=== PATIENT | female | born 1985 | race African-American/Black ===

== ENCOUNTER 2017-01-14 08:01 | Emergency (ER) | payer MEDICAID ==
[~2017-01-14] VITALS: Ht 157.5 cm; Wt 84.1 kg
[~2017-01-14 08:01] MED LIST: AMOXICILLIN 50500 MG PO; CLINDAMYCIN150 MG PO; LORTAB 5/500 501 TAB PO; MIRENA52 MG IU; NORCO 325 MG-51 TAB PO; NUVARING1 ICR VG; PENICILLIN V500 MG PO; PRENATAL VITAMI1 TA5 PO; PROAIR HFA0.09 MG/AC IH; TESSALON PERLE200 MG PO; TOPIRAMATE; ZITHROMAX Z PA250 MG PO; [UNRECOGNIZED DRUG - REMARK]
[2017-01-14 08:11] VITALS: TEMP 99.4
[2017-01-14 09:27] LABS: BASO % 0.4 % (0.0-2.0); EOS # 0.2 (0.0-0.7); EOS % 1.7 % (0-4.0); GRAN # 6.9 (1.4-6.5); GRAN % 66.3 % (42.2-75.2); HEMATOCRIT 47.2 % (37.0-47.0); HEMOGLOBIN 15.9 g/dl (12.5-16.0); LYMPH # 2.8 (1.2-3.4); LYMPH % 26.9 % (20.0-51.0); MEAN CELL VOLUME 90 fl (80.0-100.0); MEAN CORPUSCULAR HEMOGLOBIN 31 pg (27.0-31.0); MEAN CORPUSCULAR HGB CONC 34 g/dl (33.0-37.0); MEAN PLATELET VOLUME 9.7 fl (7.4-10.4); MONO # 0.5 (0.1-0.6); MONO % 4.4 % (1.7-9.3); PLATELET COUNT 307 K/mm3 (130-400); RED BLOOD COUNT 5.22 M/mm3 (4.10-5.30); REDCELL DISTRIBUTION WIDTH-CV 13.3 % (11.5-14.5); WHITE BLOOD COUNT 10.5 K/mm3 (4.8-10.8)
[2017-01-14 09:37] LABS: ADJUSTED CALCIUM 9.4 mg/dL (8.4-10.2); ALBUMIN 4.4 gm/dL (3.5-5.0); BILIRUBIN,TOTAL 0.9 mg/dL (0.0-1.0); CALCIUM 9.7 mg/dL (8.4-10.2); CREATININE, serum 0.7 mg/dL (0.52-1.25); POTASSIUM 4.1 mmol/L (3.4-5.0); TOTAL PROTEIN 8.2 gm/dL (6.4-8.2)
[2017-01-14 09:40] LABS: PH 5 (5-8); URINE APPEARANCE Clear; URINE BACTERIA Rare /hpf; URINE BILIRUBIN Negative (NEGATIVE); URINE BLOOD Negative (NEGATIVE); URINE COLOR Yellow; URINE GLUCOSE Negative (NEGATIVE); URINE KETONE Negative (NEGATIVE); URINE UROBILINOGEN Negative (NEGATIVE)
[2017-01-14] MEDS ORDERED: MACROBID 1100 MG/CAP PO (09:47)
[2017-01-14 11:02] VITALS: BP 133/86; PULSE 83
== END 2017-01-14 11:13 | disposition home or self-care (01) ==
LOC: COL.ER 08:01
PROVIDERS: Nurse Practitioner
DX: O26.891 Other specified pregnancy related conditions, first trimester (principal); R10.2 Pelvic and perineal pain; N94.89 Other specified conditions associated with female genital organs and menstrual cycle; O23.41 Unspecified infection of urinary tract in pregnancy, first trimester; B96.20 Unspecified Escherichia coli [E. coli] as the cause of diseases classified elsewhere; Z3A.11 11 weeks gestation of pregnancy
CPT/HCPCS: J2765; J7030

== ENCOUNTER 2017-08-02 10:02 | Inpatient (IN) | payer MEDICAID ==
[~2017-08-02] VITALS: Ht 157.5 cm; Wt 110.7 kg
[~2017-08-02 10:02] MED LIST changes: +MACROBID 1100 MG/CAP PO
[2017-08-18] VITALS (31 sets, daily range): BP systolic 124–165; BP diastolic 71–92; PULSE 71–120; TEMP 98–99.3
[2017-08-18] MEDS ORDERED: PRENATAL MVI (16:25)
[2017-08-18 17:06] LABS: BASO % 0.3 % (0.0-2.0); EOS # 0.2 (0.0-0.7); EOS % 1.3 % (0-4.0); GRAN # 7.5 (1.4-6.5); GRAN % 66.1 % (42.2-75.2); HEMATOCRIT 44.5 % (37.0-47.0); HEMOGLOBIN 14.7 g/dl (12.5-16.0); LYMPH # 3.1 (1.2-3.4); LYMPH % 26.8 % (20.0-51.0); MEAN CELL VOLUME 86 fl (80.0-100.0); MEAN CORPUSCULAR HEMOGLOBIN 28 pg (27.0-31.0); MEAN CORPUSCULAR HGB CONC 33 g/dl (33.0-37.0); MEAN PLATELET VOLUME 11.7 fl (7.4-10.4); MONO # 0.6 (0.1-0.6); MONO % 5.1 % (1.7-9.3); PLATELET COUNT 206 K/mm3 (130-400); RED BLOOD COUNT 5.19 M/mm3 (4.10-5.30); WHITE BLOOD COUNT 11.4 K/mm3 (4.8-10.8)
[2017-08-19] VITALS (12 sets, daily range): BP systolic 116–151; BP diastolic 64–89; PULSE 68–101; TEMP 97.6–99.5
[2017-08-19 08:18] LABS: HEMATOCRIT 39.9 % (37.0-47.0); HEMOGLOBIN 13.3 g/dl (12.5-16.0)
[2017-08-20 09:00] VITALS: BP 136/71; PULSE 82; TEMP 98.8
[2017-08-20] MEDS ORDERED: MOTRIN 600600 MG/TAB PO (10:23)
[2017-08-20] MEDS ORDERED: PERCOCET 325 MG1 TA2 PO (10:23)
== END 2017-08-20 12:00 | disposition home or self-care (01) | DRG 775 ==
LOC: OB 08-18 08:34 → LDR 08-18 15:56 → OB 08-19 01:55
PROVIDERS: Obstetrics & Gynecology
PROC: 10E0XZZ Delivery of Products of Conception, External Approach (ICD-10-PCS; principal; 2017-08-18)
PROC: 3E033VJ Introduction of Other Hormone into Peripheral Vein, Percutaneous Approach (ICD-10-PCS; 2017-08-18)
DX: O75.89 Other specified complications of labor and delivery (principal); O70.0 First degree perineal laceration during delivery; Z3A.39 39 weeks gestation of pregnancy; Z37.0 Single live birth
CPT/HCPCS: J2590; J2795; J7120

== ENCOUNTER → 2018-03-15 | Outpatient (CLI) | payer OTHER ==
[~2018-03-15] MED LIST changes: +K-TAB20 PO; +LASIX 40MG TABL40 MG PO; +MIRENA52 MG IY; +MOTRIN 600600 MG/TAB PO; +PERCOCET 325 MG1 TA2 PO; +PRENATAL MVI; +TOPROL XL 25MG25 MG PO; +VASOTEC 5MG5 MG/TAB PO
[2018-03-15 14:53] LABS: CHOLESTEROL RISK RATIO 6.5
[2018-03-15 15:24] LABS: TSH w REFLEX 1.52 uIU/mL (0.465-4.680)
== END ==
LOC: COL.LAB 10:50
PROVIDERS: Family Medicine
DX: Z13.1 Encounter for screening for diabetes mellitus (principal); Z13.220 Encounter for screening for lipoid disorders; R00.0 Tachycardia, unspecified

== ENCOUNTER 2019-01-21 10:15 | Emergency (ER) | payer OTHER ==
[~2019-01-21] VITALS: Ht 157.5 cm; Wt 109.0 kg
[2019-01-21 10:18] VITALS: TEMP 99
[2019-01-21 11:13] LABS: BASO # 0.1 (0.0-0.2); BASO % 0.4 % (0.0-2.0); EOS # 0.2 (0.0-0.7); GRAN # 9.4 (1.4-6.5); HEMOGLOBIN 17.9 g/dl (12.5-16.0); LYMPH # 4.9 (1.2-3.4); LYMPH % 31.7 % (20.0-51.0); MEAN CELL VOLUME 96 fl (80.0-100.0); MEAN CORPUSCULAR HEMOGLOBIN 32 pg (27.0-31.0); MEAN CORPUSCULAR HGB CONC 33 g/dl (33.0-37.0); MEAN PLATELET VOLUME 11.1 fl (7.4-10.4); MONO # 0.8 (0.1-0.6); MONO % 5.5 % (1.7-9.3); PLATELET COUNT 280 K/mm3 (130-400); RED BLOOD COUNT 5.56 M/mm3 (4.10-5.30); REDCELL DISTRIBUTION WIDTH-CV 14.5 % (11.5-14.5)
[2019-01-21 11:14] LABS: HEMATOCRIT 53.6 % (37.0-47.0)
[2019-01-21 11:16] LABS: ALBUMIN 4.2 gm/dL (3.5-5.0); BILIRUBIN,TOTAL 1.6 mg/dL (0.0-1.0); CALCIUM 9.2 mg/dL (8.4-10.2); CREATININE, serum 0.94 (0.52-1.25); POTASSIUM 3.7 mmol/L (3.4-5.0)
[2019-01-21] MEDS ORDERED: VASOTEC 5MG5 MG/TAB PO (11:47)
[2019-01-21] MEDS ORDERED: LASIX 40MG TABL40 MG PO (11:47)
[2019-01-21] MEDS ORDERED: LOPRESSOR 225 MG/TAB PO (11:47)
[2019-01-21] MEDS ORDERED: K-TAB10 PO (11:47)
[2019-01-21 12:07] VITALS: BP 147/109; PULSE 108
== END 2019-01-21 12:09 | disposition home or self-care (01) ==
LOC: COL.ER 10:15
PROVIDERS: Family Medicine
DX: I50.9 Heart failure, unspecified (principal); I51.7 Cardiomegaly; Z91.14 Patient's other noncompliance with medication regimen
CPT/HCPCS: J1940

== ENCOUNTER 2019-08-24 06:33 | Emergency (ER) | payer OTHER ==
[~2019-08-24] VITALS: Ht 157.5 cm; Wt 95.5 kg
[~2019-08-24 06:33] MED LIST changes: +K-TAB10 PO; +LOPRESSOR 225 MG/TAB PO
[2019-08-24 06:39] VITALS: PULSE 106; TEMP 97.6
[2019-08-24 06:57] LABS: COLLECTION METHOD CLEAN CATCH
[2019-08-24 07:12] LABS: MUCOUS Present /lpf; PH 5 (5-8); URINE APPEARANCE Hazy; URINE BACTERIA Rare /hpf; URINE BILIRUBIN Negative (NEGATIVE); URINE BLOOD 1+ (NEGATIVE); URINE COLOR Amber; URINE GLUCOSE Negative (NEGATIVE); URINE KETONE Negative (NEGATIVE); URINE LEUKOCYTE ESTERASE Negative (NEGATIVE); URINE NITRATE Positive (NEGATIVE); URINE PROTEIN(semi-quant) 3+ (NEGATIVE); URINE UROBILINOGEN Negative (NEGATIVE)
[2019-08-24] MEDS ORDERED: OMNICEF 300MG300 MG PO (07:17)
[2019-08-24 07:28] LABS: BASO # 0.1 (0.0-0.2); BASO % 0.4 % (0.0-2.0); EOS % 0.3 % (0-4.0); GRAN # 11.5 (1.4-6.5); GRAN % 78.8 % (42.2-75.2); HEMATOCRIT 53.7 % (37.0-47.0); HEMOGLOBIN 18.1 g/dl (12.5-16.0); LYMPH # 2.3 (1.2-3.4); MEAN CELL VOLUME 97 fl (80.0-100.0); MEAN CORPUSCULAR HEMOGLOBIN 33 pg (27.0-31.0); MEAN CORPUSCULAR HGB CONC 34 g/dl (33.0-37.0); MEAN PLATELET VOLUME 10.9 fl (7.4-10.4); MONO # 0.6 (0.1-0.6); MONO % 4.1 % (1.7-9.3); PLATELET COUNT 289 K/mm3 (130-400); RED BLOOD COUNT 5.53 M/mm3 (4.10-5.30); REDCELL DISTRIBUTION WIDTH-CV 14.1 % (11.5-14.5)
[2019-08-24 07:52] LABS: ALBUMIN 4.6 gm/dL (3.5-5.0); BILIRUBIN,TOTAL 1.8 mg/dL (0.0-1.0); CALCIUM 9.6 mg/dL (8.4-10.2); CREATININE, serum 0.9 (0.52-1.25); POTASSIUM 3.8 mmol/L (3.4-5.0); TOTAL PROTEIN 8.8 gm/dL (6.4-8.2)
[2019-08-24 10:31] LABS: PROTHROMBIN TIME 11.4 SECONDS (9.7-12.8)
[2019-08-24 10:34] LABS: PARTIAL THROMBOPLASTIN TIME 32.5 SECONDS (26.0-37.0)
[2019-08-24 12:41] VITALS: BP 129/96
== END 2019-08-24 12:41 | disposition short-term general hospital (02) ==
LOC: COL.ER 06:33 → SURG 08:01 → COL.ER 08:01
PROVIDERS: Emergency Medicine
DX: N39.0 Urinary tract infection, site not specified (principal); N28.0 Ischemia and infarction of kidney; I50.9 Heart failure, unspecified
CPT/HCPCS: A4216; J0696; J1644; J2270; J7030; Q9967

== ENCOUNTER 2019-10-23 08:52 | Emergency (ER) | payer OTHER ==
[~2019-10-23] VITALS: Ht 157.5 cm; Wt 97.7 kg
[~2019-10-23 08:52] MED LIST changes: +OMNICEF 300MG300 MG PO
[2019-10-23 09:01] VITALS: TEMP 97.8
[2019-10-23 09:47] LABS: COLLECTION METHOD CLEAN CATCH
[2019-10-23 09:56] LABS: BASO # 0.1 (0.0-0.2); BASO % 0.4 % (0.0-2.0); EOS # 0.1 (0.0-0.7); EOS % 0.7 % (0-4.0); GRAN % 69.6 % (42.2-75.2); HEMOGLOBIN 17.6 g/dl (12.5-16.0); LYMPH # 3.4 (1.2-3.4); LYMPH % 23.8 % (20.0-51.0); MEAN CELL VOLUME 99 fl (80.0-100.0); MEAN CORPUSCULAR HEMOGLOBIN 33 pg (27.0-31.0); MEAN CORPUSCULAR HGB CONC 34 g/dl (33.0-37.0); MEAN PLATELET VOLUME 10.9 fl (7.4-10.4); MONO # 0.7 (0.1-0.6); MONO % 5.1 % (1.7-9.3); PLATELET COUNT 259 K/mm3 (130-400); RED BLOOD COUNT 5.33 M/mm3 (4.10-5.30)
[2019-10-23 09:57] LABS: ALBUMIN 4.2 gm/dL (3.5-5.0); BILIRUBIN,TOTAL 3.4 mg/dL (0.0-1.0); CALCIUM 9.2 mg/dL (8.4-10.2); CREATININE, serum 0.89 (0.52-1.25); POTASSIUM 3.7 mmol/L (3.4-5.0); TOTAL PROTEIN 7.8 gm/dL (6.4-8.2)
[2019-10-23 10:00] LABS: HEMATOCRIT 52.5 % (37.0-47.0)
[2019-10-23 10:12] LABS: TROPONIN-I 0.038 ng/mL (0.000-0.035)
[2019-10-23 10:14] LABS: MUCOUS Present /lpf; PH 5 (5-8); URINE APPEARANCE Hazy; URINE BACTERIA Rare /hpf; URINE BILIRUBIN Negative (NEGATIVE); URINE BLOOD 2+ (NEGATIVE); URINE COLOR Amber; URINE GLUCOSE Negative (NEGATIVE); URINE KETONE Trace (NEGATIVE); URINE LEUKOCYTE ESTERASE Trace (NEGATIVE); URINE NITRATE Negative (NEGATIVE); URINE PROTEIN(semi-quant) 2+ (NEGATIVE)
[2019-10-23 12:59] VITALS: BP 138/110; PULSE 105
== END 2019-10-23 13:05 | disposition short-term general hospital (02) ==
LOC: COL.ER 08:52
PROVIDERS: Emergency Medicine
DX: N39.0 Urinary tract infection, site not specified (principal); R07.89 Other chest pain; R10.13 Epigastric pain; R79.89 Other specified abnormal findings of blood chemistry; R06.00 Dyspnea, unspecified
CPT/HCPCS: A4216; J0696; J2270; J7030; Q9967

== ENCOUNTER 2020-01-14 18:57 | Emergency (ER) | payer OTHER ==
[~2020-01-14] VITALS: Ht 157.5 cm; Wt 106.4 kg
[2020-01-14 19:05] VITALS: TEMP 98.4
[2020-01-14] MEDS ORDERED: TOPROL XL 50MG50 MG PO (19:24)
[2020-01-14] MEDS ORDERED: ASPIRIN 81M81 MG/TA2 PO (19:25)
[2020-01-14] MEDS ORDERED: ELIQUIS 5MG PO (19:25)
[2020-01-14] MEDS ORDERED: ENTRESTO 24 MG1 EACH PO (19:26)
[2020-01-14 19:32] LABS: BASO # 0.1 (0.0-0.2); BASO % 0.6 % (0.0-2.0); EOS # 0.2 (0.0-0.7); EOS % 1.8 % (0-4.0); GRAN % 56.3 % (42.2-75.2); HEMATOCRIT 50.4 % (37.0-47.0); HEMOGLOBIN 17.6 g/dl (12.5-16.0); LYMPH # 3.9 (1.2-3.4); LYMPH % 36.3 % (20.0-51.0); MEAN CELL VOLUME 98 fl (80.0-100.0); MEAN CORPUSCULAR HEMOGLOBIN 34 pg (27.0-31.0); MEAN CORPUSCULAR HGB CONC 35 g/dl (33.0-37.0); MEAN PLATELET VOLUME 10.7 fl (7.4-10.4); MONO # 0.5 (0.1-0.6); MONO % 4.8 % (1.7-9.3); PLATELET COUNT 239 K/mm3 (130-400); RED BLOOD COUNT 5.17 M/mm3 (4.10-5.30); REDCELL DISTRIBUTION WIDTH-CV 14.5 % (11.5-14.5)
[2020-01-14 19:37] LABS: INR 1.1 (0.8-3.0); PROTHROMBIN TIME 12.5 SECONDS (9.7-12.8)
[2020-01-14 19:40] LABS: ALBUMIN 4.1 gm/dL (3.5-5.0); BILIRUBIN,TOTAL 1.1 mg/dL (0.0-1.0); CALCIUM 8.8 mg/dL (8.4-10.2); CREATININE, serum 0.81 (0.52-1.25); POTASSIUM 3.2 mmol/L (3.4-5.0); TOTAL PROTEIN 7.4 gm/dL (6.4-8.2)
[2020-01-14 19:51] LABS: TROPONIN-I 0.035 ng/mL (0.000-0.035)
[2020-01-14 22:04] VITALS: BP 129/75; PULSE 100
== END 2020-01-14 22:00 | disposition home or self-care (01) ==
LOC: COL.ER 18:57
PROVIDERS: Family Medicine
DX: I50.9 Heart failure, unspecified (principal); I42.9 Cardiomyopathy, unspecified; E86.9 Volume depletion, unspecified; Z79.01 Long term (current) use of anticoagulants; Z79.82 Long term (current) use of aspirin; Z79.899 Other long term (current) drug therapy
CPT/HCPCS: J7120

== ENCOUNTER → 2020-02-24 | Outpatient (CLI) | payer OTHER ==
[~2020-02-24] MED LIST changes: +ASPIRIN 81M81 MG/TA2 PO; +ELIQUIS 5MG PO; +ENTRESTO 24 MG1 EACH PO; +TOPROL XL 50MG50 MG PO
[2020-02-24 17:46] LABS: TROPONIN-I 0.013 ng/mL (0.000-0.035)
== END ==
LOC: ZCOL.LAB 15:01
PROVIDERS: Family Medicine
DX: I50.22 Chronic systolic (congestive) heart failure (principal); R06.02 Shortness of breath

== ENCOUNTER 2020-03-03 03:27 | Emergency (ER) | payer OTHER ==
[~2020-03-03] VITALS: Ht 157.5 cm; Wt 108.2 kg
[2020-03-03 03:34] VITALS: BP 149/91; TEMP 97.2
[2020-03-03 05:50] VITALS: PULSE 88
== END 2020-03-03 05:50 | disposition home or self-care (01) ==
LOC: COL.ER 03:27
DX: F41.0 Panic disorder [episodic paroxysmal anxiety] (principal); F17.210 Nicotine dependence, cigarettes, uncomplicated; Z79.01 Long term (current) use of anticoagulants; Z79.82 Long term (current) use of aspirin
CPT/HCPCS: J2060

== ENCOUNTER 2021-03-15 02:23 | Inpatient (IN) | payer OTHER ==
[2021-03-15] VITALS (358 sets, daily range): BP systolic 117–160; BP diastolic 78–112; PULSE 70–95; TEMP 98–98.6; O2SAT 89–98
[~2021-03-15] VITALS: Ht 157.5 cm; Wt 102.7 kg
[2021-03-15 02:44] LABS: BASO # 0.1 (0.0-0.2); BASO % 0.4 % (0.0-2.0); EOS # 0.2 (0.0-0.7); EOS % 1.6 % (0-4.0); GRAN # 7.9 (1.4-6.5); GRAN % 67.2 % (42.2-75.2); HEMATOCRIT 48.8 % (37.0-47.0); HEMOGLOBIN 16.6 g/dl (12.5-16.0); LYMPH # 2.9 (1.2-3.4); LYMPH % 24.7 % (20.0-51.0); MEAN CELL VOLUME 102 fl (80.0-100.0); MEAN CORPUSCULAR HEMOGLOBIN 35 pg (27.0-31.0); MEAN CORPUSCULAR HGB CONC 34 g/dl (33.0-37.0); MEAN PLATELET VOLUME 10.4 fl (7.4-10.4); MONO # 0.7 (0.1-0.6); MONO % 5.7 % (1.7-9.3); PLATELET COUNT 204 K/mm3 (130-400); REDCELL DISTRIBUTION WIDTH-CV 14.6 % (11.5-14.5)
[2021-03-15 02:48] LABS: INR 1.2 (0.8-3.0); PROTHROMBIN TIME 13.2 SECONDS (9.7-12.8)
[2021-03-15 02:52] LABS: ALBUMIN 4.1 gm/dL (3.5-5.0); BILIRUBIN,TOTAL 0.8 mg/dL (0.0-1.0); CALCIUM 9.3 mg/dL (8.4-10.2); CREATININE, serum 0.76 (0.52-1.25); POTASSIUM 3.6 mmol/L (3.4-5.0); TOTAL PROTEIN 7.9 gm/dL (6.4-8.2)
[2021-03-15 03:03] LABS: TROPONIN-I 0.012 ng/mL (0.000-0.035)
[2021-03-15 05:11] LABS: COLLECTION METHOD CLEAN CATCH
[2021-03-15 05:15] LABS: MUCOUS Present /lpf; PH 5 (5-8); SQUAMOUS EPITHELIAL 0-2 /hpf; URINE APPEARANCE Clear; URINE BACTERIA Rare /hpf; URINE BILIRUBIN Negative (NEGATIVE); URINE BLOOD 2+ (NEGATIVE); URINE COLOR Yellow; URINE GLUCOSE Negative (NEGATIVE); URINE KETONE Negative (NEGATIVE); URINE LEUKOCYTE ESTERASE Negative (NEGATIVE); URINE NITRATE Negative (NEGATIVE); URINE PROTEIN(semi-quant) Negative (NEGATIVE); URINE RBC 0-2 /hpf
[2021-03-15] MEDS ORDERED: ENTRESTO 49 MG1 EACH PO (06:01)
[2021-03-15 07:31] LABS: TROPONIN-I < 0.012 ng/mL (0.000-0.035)
--- NOTE | 2021-03-15 08:10 | NUR ---
PATIENT BROUGHT DOWN FROM ER VIA CART. AMBULATED TO BED WITHOUT DIFFICULTY. PATIENT IS ALERT AND ORIENTED, MEDICATIONS, ALLERGIES, AND HISTORY REVIEWED. VITAL SIGNS STABLE. PATIENT REMAINS ON A NITRO DRIP GOING AT 5MCG/MIN TO LEFT AC. PATIENT DENIES PAIN NAUSEA OR SOB AT THIS TIME. CALL FONTANA WITHIN REACH, ALL SAFETY MAINTAINED. WILL MONITOR.
[2021-03-15 08:15] LABS: C-REACTIVE PROTEIN 2.2 mg/dL (0.0-0.9); MAGNESIUM 1.6 mg/dL (1.6-2.3); PHOSPHOROUS 4.4 mg/dL (2.5-4.5)
--- NOTE | 2021-03-15 10:03 | NUR ---
SW's met with the patient to discuss discharge plan. The patient lives in [place] with her four children. They are 16, twins that are 13, and a 3-year-old. She states that they are staying with family while she is here. She reports independence with ADLs and does not have any DME. The patient reports no difficulties affording her meds now, since she has reached her deductible. She receives her medications from [facility]. The patient does not have a DPOA-HC, but she was interested in obtaining a form. [facility] provided. The patient is not , her children are under the age of 18. Her parents are her next of kin: Ibeth (ph#[phone]) and Reagan. She states that they live three blocks away from her. The patient plans to return home with her children upon discharge. No additional needs at this time. *Discharge plan: home with children*
--- NOTE | 2021-03-15 10:32 | NUR ---
First visit from the cut out and marking machine operator. No needs right now.
--- NOTE | 2021-03-15 10:39 | NUR ---
[facility] MADE AWARE OF EARLIER DOSE OF ASPRIN AND ELIQUIS. PER [facility]SA AND GIVE PLAVIX. MADE PHARMACY AWARE.
--- NOTE | 2021-03-15 16:18 | NUR ---
SEE MERGE FOR ALL MEDICATION ADMINISTRATION TIMES, INTRA AND POST SEDATION ASSESSMENTS
--- NOTE | 2021-03-15 16:40 | NUR ---
PATIENT BROUGHT BACK FROM CARDIAC CATH VIA BED. PLACED ON MONITORS, VITAL SIGNS STABLE. PATIENT IS ALERT AND ORIENTED IN BED, DENIES DISCOMFORT. IV INFUSING WITHOUT DIFFICULTY. RIGHT RADIAL SITE CLEAN DRY INTACT. WILL CONTINUE TO MONITOR.
[2021-03-16] VITALS (268 sets, daily range): BP systolic 137–152; BP diastolic 80–96; PULSE 60–88; TEMP 98.1–98.5; O2SAT 86–99
[2021-03-16 05:34] LABS: BASO # 0.1 (0.0-0.2); BASO % 0.5 % (0.0-2.0); EOS # 0.2 (0.0-0.7); EOS % 1.9 % (0-4.0); GRAN # 7.5 (1.4-6.5); GRAN % 65.4 % (42.2-75.2); HEMATOCRIT 49.5 % (37.0-47.0); HEMOGLOBIN 16.7 g/dl (12.5-16.0); LYMPH % 25.9 % (20.0-51.0); MEAN CELL VOLUME 100 fl (80.0-100.0); MEAN CORPUSCULAR HEMOGLOBIN 34 pg (27.0-31.0); MEAN CORPUSCULAR HGB CONC 34 g/dl (33.0-37.0); MEAN PLATELET VOLUME 10.9 fl (7.4-10.4); MONO # 0.7 (0.1-0.6); PLATELET COUNT 196 K/mm3 (130-400); RED BLOOD COUNT 4.95 M/mm3 (4.10-5.30); REDCELL DISTRIBUTION WIDTH-CV 14.5 % (11.5-14.5)
[2021-03-16 05:48] LABS: CALCIUM 8.4 mg/dL (8.4-10.2); CREATININE, serum 0.64 (0.52-1.25); POTASSIUM 3.3 mmol/L (3.4-5.0)
[2021-03-16 05:51] LABS: CHOLESTEROL RISK RATIO 11.1
--- NOTE | 2021-03-16 07:00 | NUR ---
RECEIVED REPORT FROM ZANDRA VAZQUEZ. PT SITTING UP IN BED PLAYIGN ON HER PHONE ON RA. CALL LIGHT WITHIN REACH. VSS. DENIES ANY CP/PRESSURE AT THIS TIME.
--- NOTE | 2021-03-16 07:05 | NUR ---
Bedside shift report given to ZANDRA Rojas.
[2021-03-16] MEDS ORDERED: ENTRESTO 49 MG1 EACH PO (08:34)
[2021-03-16] MEDS ORDERED: LASIX 20MG TABL20 MG PO (08:35)
== END 2021-03-16 09:30 | disposition home or self-care (01) | DRG 287 ==
LOC: COL.ER 02:23 → ICU 05:10
PROVIDERS: Emergency Medicine; Nurse Practitioner Family; ADMIT Hospitalist
PROC: 4A023N7 Measurement of Cardiac Sampling and Pressure, Left Heart, Percutaneous Approach (ICD-10-PCS; principal; 2021-03-15)
PROC: B2111ZZ Fluoroscopy of Multiple Coronary Arteries using Low Osmolar Contrast (ICD-10-PCS; 2021-03-15)
DX: I11.0 Hypertensive heart disease with heart failure (principal); E87.2 Acidosis; Z68.41 Body mass index [BMI] 40.0-44.9, adult; R07.89 Other chest pain; F17.210 Nicotine dependence, cigarettes, uncomplicated; E66.01 Morbid (severe) obesity due to excess calories; I50.23 Acute on chronic systolic (congestive) heart failure; R74.01 Elevation of levels of liver transaminase levels; E11.65 Type 2 diabetes mellitus with hyperglycemia; D72.829 Elevated white blood cell count, unspecified; D75.1 Secondary polycythemia; I42.9 Cardiomyopathy, unspecified; Z95.0 Presence of cardiac pacemaker
CPT/HCPCS: 99223-AI; 99239; C1769; J1644; J1940; J2250; J3010; Q9967

== ENCOUNTER 2021-10-01 05:21 | Emergency (ER) | payer SELFPAY ==
[~2021-10-01] VITALS: Ht 157.5 cm; Wt 102.3 kg
[~2021-10-01 05:21] MED LIST changes: +ENTRESTO 49 MG1 EACH PO; +LASIX 20MG TABL20 MG PO
[2021-10-01 05:26] VITALS: TEMP 98.3
[2021-10-01 05:45] LABS: BASO # 0.1 K/mm3 (0.0-0.2); BASO % 0.7 % (0.0-2.0); EOS # 0.2 K/mm3 (0.0-0.7); EOS % 1.6 % (0.0-4.0); GRAN % 60.1 % (42.2-75.2); HEMATOCRIT 48.1 % (37.0-47.0); HEMOGLOBIN 16.8 g/dl (12.5-16.0); LYMPH # 3.7 K/mm3 (1.2-3.4); LYMPH % 31.7 % (20.0-51.0); MEAN CELL VOLUME 97 fl (80.0-100.0); MEAN CORPUSCULAR HEMOGLOBIN 34 pg (27-31); MEAN CORPUSCULAR HGB CONC 35 g/dl (33.0-37.0); MEAN PLATELET VOLUME 11.3 fl (7.4-10.4); MONO # 0.7 K/mm3 (0.1-0.6); MONO % 5.6 % (1.7-9.3); PLATELET COUNT 209 K/mm3 (130-400); RED BLOOD COUNT 4.97 M/mm3 (4.10-5.30); REDCELL DISTRIBUTION WIDTH-CV 14.6 % (11.5-14.5)
[2021-10-01 06:10] LABS: ALBUMIN 3.4 gm/dL (3.5-5.0); BILIRUBIN,TOTAL 1.9 mg/dL (0.2-1.2); C-REACTIVE PROTEIN 0.85 mg/dL (0.00-0.50); CALCIUM 8.6 mg/dL (8.4-10.2); CREATININE, serum 0.97 mg/dL (0.57-1.11); INR 1.2 (0.8-3.0); MAGNESIUM 1.4 mg/dL (1.6-2.6); POTASSIUM 3.1 mmol/L (3.5-4.5); PROTHROMBIN TIME 13.3 SECONDS (9.7-12.8); TOTAL PROTEIN 7.4 gm/dL (6.2-8.1)
[2021-10-01 06:17] LABS: TROPONIN-I 0.152 ng/mL (0.00-0.033)
[2021-10-01 12:42] VITALS: BP 142/91; PULSE 112
--- NOTE | 2021-10-04 14:50 | NUR ---
building construction ironworker left Dr Merrill's office a message to call and also left patient a message to call to follow up on patient's ability to obtain her prescriptions.
--- NOTE | 2021-10-05 15:49 | NUR ---
garbage depot worker confirmed with financial counselor that they have reached out and left messages to make contact as patient's medicaid insurance has lapsed. Financial counselor can assist with applying for medicaid.
--- NOTE | 2021-10-14 09:20 | NUR ---
Patient is a client of the [facility]. It was discussed that patient needs to reapply for medicaid/disability as it has lapsed. Securing medicaid will ensure coverage for patient's medications.
== END 2021-10-01 12:42 | disposition left against medical advice (07) ==
LOC: COL.ER 05:21
PROVIDERS: Emergency Medicine
DX: I11.0 Hypertensive heart disease with heart failure (principal); I50.20 Unspecified systolic (congestive) heart failure; R79.89 Other specified abnormal findings of blood chemistry; E87.6 Hypokalemia; F17.210 Nicotine dependence, cigarettes, uncomplicated; Z20.822 Contact with and (suspected) exposure to COVID-19; Z79.899 Other long term (current) drug therapy; Z79.01 Long term (current) use of anticoagulants; Z79.82 Long term (current) use of aspirin
CPT/HCPCS: J1940; J3475

== ENCOUNTER 2021-11-18 21:51 | Inpatient (IN) | payer SELFPAY ==
[~2021-11-18] VITALS: Ht 157.5 cm; Wt 99.8 kg
[2021-11-18 22:17] LABS: COLLECTION METHOD CLEAN CATCH
[2021-11-18 22:22] LABS: BASO # 0.1 K/mm3 (0.0-0.2); BASO % 0.4 % (0.0-2.0); EOS # 0.2 K/mm3 (0.0-0.7); EOS % 1.2 % (0.0-4.0); GRAN # 9.2 K/mm3 (1.4-6.5); GRAN % 70.7 % (42.2-75.2); HEMATOCRIT 49.8 % (37.0-47.0); LYMPH # 2.9 K/mm3 (1.2-3.4); LYMPH % 22.6 % (20.0-51.0); MEAN CELL VOLUME 99 fl (80.0-100.0); MEAN CORPUSCULAR HEMOGLOBIN 34 pg (27-31); MEAN CORPUSCULAR HGB CONC 34 g/dl (33.0-37.0); MONO # 0.6 K/mm3 (0.1-0.6); MONO % 4.8 % (1.7-9.3); PLATELET COUNT 187 K/mm3 (130-400); RED BLOOD COUNT 5.01 M/mm3 (4.10-5.30); REDCELL DISTRIBUTION WIDTH-CV 14.4 % (11.5-14.5)
[2021-11-18 22:32] LABS: MUCOUS Present (NOT PRESENT); PH 7 (5-8); SQUAMOUS EPITHELIAL 0-2 /hpf (0-10); URINE APPEARANCE Clear (CLEAR/HAZY); URINE BACTERIA None Seen /hpf (NONE SEEN); URINE COLOR Yellow (YELLOW)
[2021-11-18 22:33] LABS: URINE BILIRUBIN Negative (NEGATIVE); URINE BLOOD 2+ (NEGATIVE); URINE GLUCOSE Negative (NEGATIVE); URINE KETONE Negative (NEGATIVE); URINE LEUKOCYTE ESTERASE Negative (NEGATIVE); URINE NITRATE Negative (NEGATIVE); URINE PROTEIN(semi-quant) 1+ (NEGATIVE); URINE UROBILINOGEN Negative (NEGATIVE)
[2021-11-18 22:41] LABS: ALBUMIN 3.7 gm/dL (3.5-5.0); BILIRUBIN,TOTAL 2.3 mg/dL (0.2-1.2); C-REACTIVE PROTEIN 0.85 mg/dL (0.00-0.50); CALCIUM 9.2 mg/dL (8.4-10.2); CREATININE, serum 0.82 mg/dL (0.57-1.11); POTASSIUM 3.4 mmol/L (3.5-4.5); TOTAL PROTEIN 7.4 gm/dL (6.2-8.1)
[2021-11-19] VITALS (9 sets, daily range): BP systolic 156; BP diastolic 92; PULSE 130; TEMP 97.6; O2SAT 38–99
[2021-11-19 00:32] LABS: INR 1.2 (0.8-3.0); PROTHROMBIN TIME 13.2 SECONDS (9.7-12.8)
[2021-11-19] MEDS ORDERED: LASIX 40MG TABL40 MG PO (00:35)
[2021-11-19] MEDS ORDERED: ASPIRIN 81M81 MG/TA2 PO (00:36)
[2021-11-19] MEDS ORDERED: MICRO-K 10 EXT10 MEQ PO (00:36)
[2021-11-19 00:41] LABS: MAGNESIUM 1.5 mg/dL (1.6-2.6)
[2021-11-19 00:49] LABS: TROPONIN-I 0.106 ng/mL (0.00-0.033)
[2021-11-19 01:02] LABS: HEMOGLOBIN A1C 5.8 %
[2021-11-19 01:20] LABS: LACTIC ACID 2.2 mmol/L (0.5-2.0)
--- NOTE | 2021-11-19 17:35 | NUR ---
PT ADMITTED FROM ED WITH CHF. PT IS AXOX4. PT IS ON 2L NC. PT SHOWING ST ON TELE. BENSON MOLINA WITH BEDSIDE. PT ORIENTED TO ROOM AND FLOOR. SHANTA MADRID TO [facility].
[2021-11-20] VITALS (110 sets, daily range): BP systolic 99–140; BP diastolic 61–93; PULSE 94–105; TEMP 97.4–98.5; O2SAT 31–100
[2021-11-20 06:25] LABS: BASO % 0.3 % (0.0-2.0); EOS # 0.1 K/mm3 (0.0-0.7); EOS % 0.9 % (0.0-4.0); GRAN # 5.2 K/mm3 (1.4-6.5); GRAN % 59.6 % (42.2-75.2); HEMOGLOBIN 15.7 g/dl (12.5-16.0); LYMPH # 2.8 K/mm3 (1.2-3.4); MEAN CELL VOLUME 98 fl (80.0-100.0); MEAN CORPUSCULAR HEMOGLOBIN 34 pg (27-31); MEAN CORPUSCULAR HGB CONC 35 g/dl (33.0-37.0); MONO # 0.6 K/mm3 (0.1-0.6); PLATELET COUNT 142 K/mm3 (130-400); RED BLOOD COUNT 4.61 M/mm3 (4.10-5.30); REDCELL DISTRIBUTION WIDTH-CV 14.4 % (11.5-14.5)
[2021-11-20 06:45] LABS: CALCIUM 8.2 mg/dL (8.4-10.2); CREATININE, serum 0.81 mg/dL (0.57-1.11); MAGNESIUM 1.8 mg/dL (1.6-2.6)
[2021-11-20 07:10] LABS: POTASSIUM 2.9 mmol/L (3.5-4.5)
--- NOTE | 2021-11-20 07:40 | NUR ---
Alert and oriented in bed; reports a headache due to the nitro but denies any other concerns or complaints. Will continue to monitor.
--- NOTE | 2021-11-20 12:19 | NUR ---
Commissions Coordinator offered prayer and support with patient.
--- NOTE | 2021-11-20 14:21 | NUR ---
[facility] completed intake with patient. Patient provides that she lives in [facility] with her four children. Patient appointed mother Ibeth Mackay at [phone] as her DPOA-HC during intake. Documentation reviewed completed and placed in chart. Copies also provided to patient for her records. Patient states that she does not utilize DME, and is independent with ADL's. Patient state her PCP is Dr. Tere Pastrana, pharmacy is [facility]. Patient plans to return to her home upon DC and has no concerns with doing so. [facility] will continue to follow. DC plan: home
--- NOTE | 2021-11-20 15:26 | NUR ---
Notified Dr. Posey that Dobutamine and Nitro have been titrated off. Will continue to lasix drip. States that she would be ok with patient going up to the medical floor. Discussed with patient and patient not saying that she is considering going home AMA due to cost and child care sitter issues. Dr. Baker notified and will come talk to the patient and get in touch with social work.
--- NOTE | 2021-11-20 15:31 | NUR ---
SW informed that patient would be leaving AMA due to not having insurance, but needs to stay in facility due to clinical need SW spoke to patient in regards to obtaining resources to review finances. Patient stated that she understands that she is leaving on her on free will and states that she is ready to leave and that everyting will be okay. SW informed patient's physican and physican stated that she will speak with patient.
[2021-11-20] MEDS ORDERED: LANOXIN 0.25M0.25 MG PO (16:09)
[2021-11-20] MEDS ORDERED: COZAAR 25MG25 MG/TAB PO (16:09)
--- NOTE | 2021-11-20 18:20 | NUR ---
Patient discharged from unit; alert and oriented and in no distress upon discharge.
== END 2021-11-20 18:20 | disposition home or self-care (01) | DRG 291 ==
LOC: COL.ER 21:51 → MEDICAL 11-19 14:37 → ICU 11-19 17:18
PROVIDERS: Nurse Practitioner Family; Nurse Practitioner Primary Care; ADMIT Internal Medicine
DX: I11.0 Hypertensive heart disease with heart failure (principal); J96.01 Acute respiratory failure with hypoxia; I50.43 Acute on chronic combined systolic (congestive) and diastolic (congestive) heart failure; E87.2 Acidosis; Z68.41 Body mass index [BMI] 40.0-44.9, adult; I42.0 Dilated cardiomyopathy; F17.210 Nicotine dependence, cigarettes, uncomplicated; D75.1 Secondary polycythemia; E66.01 Morbid (severe) obesity due to excess calories; K81.9 Cholecystitis, unspecified; E87.6 Hypokalemia; R73.9 Hyperglycemia, unspecified; E83.42 Hypomagnesemia; I34.0 Nonrheumatic mitral (valve) insufficiency; T50.2X5A Adverse effect of carbonic-anhydrase inhibitors, benzothiadiazides and other diuretics, initial encounter; I25.2 Old myocardial infarction; Z95.0 Presence of cardiac pacemaker; Z95.810 Presence of automatic (implantable) cardiac defibrillator; Z79.82 Long term (current) use of aspirin; Z23 Encounter for immunization
CPT/HCPCS: 99222-AI; 99232-AI; 99233-AI; 99239; J0696; J1170; J1250; J1885; J1940; J2405; J2543; J3475; J3480; J7030; Q9967

== ENCOUNTER 2022-08-10 16:09 | Emergency (ER) | payer OTHER ==
[~2022-08-10] VITALS: Ht 157.5 cm; Wt 106.8 kg
[~2022-08-10 16:09] MED LIST changes: +COZAAR 25MG25 MG/TAB PO; +LANOXIN 0.25M0.25 MG PO; +MICRO-K 10 EXT10 MEQ PO
[2022-08-10 16:28] VITALS: TEMP 98.1
[2022-08-10 17:15] LABS: COLLECTION METHOD CLEAN CATCH
[2022-08-10 17:16] LABS: HEMATOCRIT 46.6 % (37.0-47.0); HEMOGLOBIN 16.6 g/dl (12.5-16.0); MEAN CELL VOLUME 101 fl (80.0-100.0); MEAN CORPUSCULAR HEMOGLOBIN 36 pg (27-31); MEAN CORPUSCULAR HGB CONC 36 g/dl (33.0-37.0); MEAN PLATELET VOLUME 11.1 fl (7.4-10.4); PLATELET COUNT 153 K/mm3 (130-400); REDCELL DISTRIBUTION WIDTH-CV 14.6 % (11.5-14.5)
[2022-08-10 17:24] LABS: PH 5.5 (5.0-8.5); URINE APPEARANCE Clear (CLEAR/HAZY); URINE BLOOD 2+ (NEGATIVE); URINE COLOR Yellow (YELLOW); URINE GLUCOSE Negative (NEGATIVE); URINE KETONE Negative (NEGATIVE); URINE NITRATE Negative (NEGATIVE); URINE PROTEIN(semi-quant) 2+ (NEGATIVE)
[2022-08-10 17:35] LABS: ALBUMIN 3.5 gm/dL (3.5-5.0); BILIRUBIN,TOTAL 1.4 mg/dL (0.2-1.2); CALCIUM 8.3 mg/dL (8.4-10.2); CREATININE, serum 0.68 mg/dL (0.57-1.11); POTASSIUM 3.5 mmol/L (3.5-4.5)
[2022-08-10 17:36] LABS: MUCOUS Present (NOT PRESENT); URINE BACTERIA None Seen /hpf (NONE SEEN); URINE RBC 0-2 /hpf (0-2)
[2022-08-10 17:47] LABS: BAND 2 % (0-10); LYMPHOCYTE 39 % (20.0-51.0); NEUTROPHILS 57 % (42.0-75.2)
[2022-08-10 17:48] LABS: PLATELET ESTIMATE NORMAL (NORMAL)
[2022-08-10 18:26] VITALS: BP 132/91; PULSE 100
== END 2022-08-10 18:30 | disposition home or self-care (01) ==
LOC: COL.ER 16:09
PROVIDERS: Physician Assistant
DX: K82.8 Other specified diseases of gallbladder (principal); D72.829 Elevated white blood cell count, unspecified; R74.8 Abnormal levels of other serum enzymes; Z88.6 Allergy status to analgesic agent; Z28.310 Unvaccinated for COVID-19
CPT/HCPCS: J1885; J7030

== ENCOUNTER 2022-11-01 08:31 | Inpatient (IN) | payer OTHER ==
[~2022-11-01] VITALS: Ht 5.1 cm; Wt 89.6 kg
[2022-11-01 09:12] LABS: BASO # 0.1 K/mm3 (0.0-0.2); BASO % 0.5 % (0.0-2.0); EOS # 0.2 K/mm3 (0.0-0.7); EOS % 1.3 % (0.0-4.0); GRAN # 7.9 K/mm3 (1.4-6.5); GRAN % 69.3 % (42.2-75.2); HEMATOCRIT 49.1 % (37.0-47.0); HEMOGLOBIN 16.8 g/dl (12.5-16.0); LYMPH # 2.8 K/mm3 (1.2-3.4); LYMPH % 24.2 % (20.0-51.0); MEAN CELL VOLUME 102 fl (80.0-100.0); MEAN CORPUSCULAR HEMOGLOBIN 35 pg (27-31); MEAN CORPUSCULAR HGB CONC 34 g/dl (33.0-37.0); MEAN PLATELET VOLUME 11.6 fl (7.4-10.4); MONO # 0.5 K/mm3 (0.1-0.6); MONO % 4.5 % (1.7-9.3); PLATELET COUNT 165 K/mm3 (130-400); RED BLOOD COUNT 4.82 M/mm3 (4.10-5.30); REDCELL DISTRIBUTION WIDTH-CV 12.8 % (11.5-14.5)
[2022-11-01 09:25] LABS: ALBUMIN 3.6 gm/dL (3.5-5.0); BILIRUBIN,TOTAL 1.7 mg/dL (0.2-1.2); CALCIUM 9.4 mg/dL (8.4-10.2); CREATININE, serum 0.78 mg/dL (0.57-1.11); POTASSIUM 3.7 mmol/L (3.5-4.5); TOTAL PROTEIN 7.9 gm/dL (6.2-8.1)
[2022-11-01 09:34] LABS: TROPONIN-I 0.036 ng/mL (0.00-0.033)
[2022-11-01 12:00] VITALS: BP 154/82; PULSE 59; TEMP 97.9
[2022-11-01 12:03] LABS: COLLECTION METHOD CLEAN CATCH
[2022-11-01 12:20] LABS: PH 5.5 (5.0-8.5); URINE APPEARANCE Turbid (CLEAR/HAZY); URINE COLOR Yellow (YELLOW); URINE GLUCOSE Negative (NEGATIVE); URINE KETONE TRACE (NEGATIVE); URINE PROTEIN(semi-quant) 3+ (NEGATIVE)
[2022-11-01 12:21] LABS: URINE BLOOD Negative (NEGATIVE); URINE NITRATE Positive (NEGATIVE); URINE UROBILINOGEN 0.2 E.U/dL (0.2-1.0)
[2022-11-01 12:24] LABS: MUCOUS Present (NOT PRESENT); SQUAMOUS EPITHELIAL 0-2 /hpf (0-10); URINE BACTERIA None Seen /hpf (NONE SEEN)
[2022-11-01 15:55] VITALS: BP 161/97; PULSE 62; TEMP 98.2
[2022-11-01 19:38] VITALS: BP 129/86; BP 154/77; PULSE 60; PULSE 75; TEMP 98.3; TEMP 98.4
[2022-11-01 23:12] VITALS: BP 156/73; PULSE 50; TEMP 98.3
--- NOTE | 2022-11-02 01:14 | NUR ---
Shift assessment completed around 194; A&O x4. Abdominal pain is scored at 4-5/10, but refusing any pain interventions at this time. Pt verbalizes understanding respect when to call for her pain medications. Pt is NPO. RAC INT is CDI. SCDs on BLE. Belongings and call light are within reach.
[2022-11-02 03:36] VITALS: BP 149/86; PULSE 67; TEMP 98.6
[2022-11-02 07:02] VITALS: BP 152/92; PULSE 61; TEMP 97.9
[2022-11-02 07:18] LABS: BASO # 0.1 K/mm3 (0.0-0.2); BASO % 0.5 % (0.0-2.0); EOS # 0.2 K/mm3 (0.0-0.7); EOS % 2.1 % (0.0-4.0); GRAN # 6.9 K/mm3 (1.4-6.5); HEMATOCRIT 47.6 % (37.0-47.0); LYMPH # 3.8 K/mm3 (1.2-3.4); LYMPH % 32.8 % (20.0-51.0); MEAN CELL VOLUME 104 fl (80.0-100.0); MEAN CORPUSCULAR HEMOGLOBIN 35 pg (27-31); MEAN CORPUSCULAR HGB CONC 34 g/dl (33.0-37.0); MEAN PLATELET VOLUME 11.9 fl (7.4-10.4); MONO # 0.6 K/mm3 (0.1-0.6); MONO % 5.3 % (1.7-9.3); PLATELET COUNT 154 K/mm3 (130-400); RED BLOOD COUNT 4.57 M/mm3 (4.10-5.30); REDCELL DISTRIBUTION WIDTH-CV 12.8 % (11.5-14.5)
[2022-11-02 07:27] LABS: CALCIUM 8.6 mg/dL (8.4-10.2); CREATININE, serum 0.74 mg/dL (0.57-1.11); POTASSIUM 3.9 mmol/L (3.5-4.5)
--- NOTE | 2022-11-02 10:42 | NUR ---
PT TAKEN TO MRI VIA W/C. IV FLUIDS HELD AND TELEMETRY REMOVED FOR EXAM. RESP EVEN AND EASY, PAIN CONTINUES TO HAVE ABD PAIN THAT IS RELIEVED WITH MORPHINE.
[2022-11-02 11:49] VITALS: BP 162/95; PULSE 51; TEMP 98.1
--- NOTE | 2022-11-02 12:09 | NUR ---
DR. BOYLE INFORMED OF MRI RESULTS. THINKING ABOUT DOING MRCP TOMORROW.
--- NOTE | 2022-11-02 14:37 | NUR ---
PT COMPLETED MRI AND IS SCHEDULED FOR EGD IN AM PER DR. BOYLE, PATIENT INFORMED OF PLAN AND GIVEN A CLEAR LIQUID DIET. PT ALSO EDUCATED ON NEED TO NOT TAKE ANYTHING BY MOUTH AFTER MIDNIGHT FOR EGD IN MORNING. PT VERBALIZED UNDERSTANDING.
[2022-11-02 15:29] VITALS: BP 163/76; PULSE 67; TEMP 98.6
[2022-11-02 20:32] VITALS: BP 138/72; PULSE 78; TEMP 98.9
--- NOTE | 2022-11-02 23:03 | NUR ---
Scheduled medications given. Shift assessments performed. VSS. Patient A&O. Patient c/o of 6/10 RUQ pain. PRN morphine given as ordered. Patient is currenlty resting in bed. Denies any further pain, discomfort, SOA, or further needs at this time. Call light in reach.
[2022-11-03] VITALS (9 sets, daily range): BP systolic 114–159; BP diastolic 68–105; PULSE 70–90; TEMP 97.9–98.8
--- NOTE | 2022-11-03 05:15 | NUR ---
Patient has had an uneventful night. PRN morphine given twice this shift for RUQ pain. Patient is currently resting in bed. No s/s of pain or discomfort at this time. Call light in reach.
[2022-11-03 06:39] LABS: BASO # 0.1 K/mm3 (0.0-0.2); BASO % 0.5 % (0.0-2.0); EOS # 0.3 K/mm3 (0.0-0.7); EOS % 2.3 % (0.0-4.0); GRAN # 6.7 K/mm3 (1.4-6.5); GRAN % 60.2 % (42.2-75.2); HEMATOCRIT 45.9 % (37.0-47.0); HEMOGLOBIN 16.2 g/dl (12.5-16.0); LYMPH # 3.4 K/mm3 (1.2-3.4); LYMPH % 30.5 % (20.0-51.0); MEAN CELL VOLUME 100 fl (80.0-100.0); MEAN CORPUSCULAR HEMOGLOBIN 35 pg (27-31); MEAN CORPUSCULAR HGB CONC 35 g/dl (33.0-37.0); MEAN PLATELET VOLUME 11.7 fl (7.4-10.4); MONO # 0.7 K/mm3 (0.1-0.6); MONO % 6.3 % (1.7-9.3); PLATELET COUNT 147 K/mm3 (130-400); RED BLOOD COUNT 4.58 M/mm3 (4.10-5.30); REDCELL DISTRIBUTION WIDTH-CV 12.5 % (11.5-14.5)
[2022-11-03 06:54] LABS: CALCIUM 8.7 mg/dL (8.4-10.2); CREATININE, serum 0.75 mg/dL (0.57-1.11); MAGNESIUM 1.7 mg/dL (1.6-2.6); POTASSIUM 3.8 mmol/L (3.5-4.5)
--- NOTE | 2022-11-03 09:20 | NUR ---
Several visit attempts; Patient out Cloth Desizing Range Tender left card offering spiritual care and God's blessings.
--- NOTE | 2022-11-03 13:10 | NUR ---
[employer] met with patient to discuss discharge planning. Patient lives in [place] with her four children, ages 18, 15, 15, and 5[address] Lee for primary care and obtains medications from [facility] with no difficulties. Patient works from home for [employer] and is independent with ADLS. Patient does not have DPOA-HC and is not interested in completing one at this time. Patient lists her mother, Ibeth (ph#[phone]) as emergency contact. Patient plans to return home at time of discharge, she is hopeful for today. Discharge Plan: Home
[2022-11-03] MEDS ORDERED: PROTONIX 40MG T40 MG PO (14:15)
== END 2022-11-03 14:58 | disposition home or self-care (01) | DRG 439 ==
LOC: COL.ER 08:31 → MEDICAL 10:53
PROVIDERS: Emergency Medicine; Internal Medicine Gastroenterology; Physician Assistant; ADMIT Student in an Organized Health Care Education/Training Program
PROC: 0DJ08ZZ Inspection of Upper Intestinal Tract, Via Natural or Artificial Opening Endoscopic (ICD-10-PCS; principal; 2022-11-03 08:00)
DX: K85.90 Acute pancreatitis without necrosis or infection, unspecified (principal); E87.20 Acidosis, unspecified; I50.42 Chronic combined systolic (congestive) and diastolic (congestive) heart failure; I42.8 Other cardiomyopathies; N39.0 Urinary tract infection, site not specified; Z68.41 Body mass index [BMI] 40.0-44.9, adult; F17.210 Nicotine dependence, cigarettes, uncomplicated; K59.00 Constipation, unspecified; I11.0 Hypertensive heart disease with heart failure; E66.01 Morbid (severe) obesity due to excess calories; E78.5 Hyperlipidemia, unspecified; K29.80 Duodenitis without bleeding; E80.6 Other disorders of bilirubin metabolism; I45.81 Long QT syndrome; D75.1 Secondary polycythemia; R73.9 Hyperglycemia, unspecified; Z79.82 Long term (current) use of aspirin; Z95.810 Presence of automatic (implantable) cardiac defibrillator
CPT/HCPCS: C9113; J0696; J2270; J2405; J2543; J2704; J3010; J7120

== ENCOUNTER 2023-02-17 19:36 | Emergency (ER) | payer SELFPAY ==
[~2023-02-17] VITALS: Ht 157.5 cm; Wt 97.7 kg
[~2023-02-17 19:36] MED LIST changes: +PROTONIX 40MG T40 MG PO
[2023-02-17 19:42] VITALS: TEMP 98.7
[2023-02-17 20:50] LABS: BASO # 0.1 K/mm3 (0.0-0.2); BASO % 0.6 % (0.0-2.0); EOS # 0.2 K/mm3 (0.0-0.7); EOS % 1.3 % (0.0-4.0); GRAN # 9.2 K/mm3 (1.4-6.5); GRAN % 68.8 % (42.2-75.2); HEMATOCRIT 51.6 % (37.0-47.0); HEMOGLOBIN 18.1 g/dl (12.5-16.0); LYMPH # 3.3 K/mm3 (1.2-3.4); LYMPH % 24.2 % (20.0-51.0); MEAN CELL VOLUME 101 fl (80.0-100.0); MEAN CORPUSCULAR HEMOGLOBIN 35 pg (27-31); MEAN CORPUSCULAR HGB CONC 35 g/dl (33.0-37.0); MEAN PLATELET VOLUME 11.3 fl (7.4-10.4); MONO # 0.6 K/mm3 (0.1-0.6); MONO % 4.7 % (1.7-9.3); PLATELET COUNT 156 K/mm3 (130-400); REDCELL DISTRIBUTION WIDTH-CV 13.6 % (11.5-14.5)
[2023-02-17 20:57] LABS: COLLECTION METHOD CLEAN CATCH
[2023-02-17 21:02] LABS: URINE APPEARANCE Cloudy (CLEAR/HAZY); URINE BLOOD 3+ (NEGATIVE); URINE COLOR Amber (YELLOW); URINE GLUCOSE Negative (NEGATIVE); URINE KETONE 3+ (NEGATIVE); URINE NITRATE Positive (NEGATIVE); URINE PROTEIN(semi-quant) 3+ (NEGATIVE)
[2023-02-17 21:06] LABS: MUCOUS Present (NOT PRESENT); SQUAMOUS EPITHELIAL 20-50 /hpf (0-10); URINE BACTERIA Rare /hpf (NONE SEEN); URINE RBC >50 /hpf (0-2); URINE WBC 20-50 /hpf (0-2)
[2023-02-17 21:12] LABS: TROPONIN-I 0.025 ng/mL (0.00-0.033)
[2023-02-17 21:18] LABS: ALBUMIN 4.1 gm/dL (3.5-5.0); BILIRUBIN,TOTAL 2.8 mg/dL (0.2-1.2); CALCIUM 9.4 mg/dL (8.4-10.2); CREATININE, serum 0.75 mg/dL (0.57-1.11); POTASSIUM 3.2 mmol/L (3.5-4.5); TOTAL PROTEIN 8.7 gm/dL (6.2-8.1)
[2023-02-17] MEDS ORDERED: PERCOCET 325 MG1 TA2 PO (22:54)
[2023-02-17] MEDS ORDERED: ZOFRAN ODT4 MG PO (22:54)
[2023-02-17 23:09] VITALS: BP 173/104; PULSE 70
== END 2023-02-17 23:11 | disposition left against medical advice (07) ==
LOC: COL.ER 19:36
PROVIDERS: Emergency Medicine
DX: K85.90 Acute pancreatitis without necrosis or infection, unspecified (principal); K74.60 Unspecified cirrhosis of liver; F17.200 Nicotine dependence, unspecified, uncomplicated
CPT/HCPCS: J2270; J2405; J7030; Q9967

== ENCOUNTER 2024-02-13 08:42 | Emergency (ER) | payer SELFPAY ==
[~2024-02-13] VITALS: Ht 157.5 cm; Wt 84.1 kg
[~2024-02-13 08:42] MED LIST changes: +ZOFRAN ODT4 MG PO
[2024-02-13 08:53] VITALS: TEMP 98.3
[2024-02-13] MEDS ORDERED: NS 1,000 ML IV ONE (11:15)
[2024-02-13] MEDS ORDERED: Ondansetron 4 MG/2 ML VIAL IV ONE (11:15)
[2024-02-13] MEDS ORDERED: Pantoprazole 40 MG in NS 10 ML IV ONE (11:15)
[2024-02-13 11:34] LABS: COLLECTION METHOD CLEAN CATCH
[2024-02-13 11:42] LABS: PH 5.5 (5.0-8.5); URINE APPEARANCE CLEAR (CLEAR/HAZY); URINE BLOOD NEGATIVE (NEGATIVE); URINE COLOR ORANGE (YELLOW); URINE GLUCOSE NEGATIVE (NEGATIVE); URINE KETONE TRACE (NEGATIVE); URINE NITRATE POSITIVE (NEGATIVE); URINE PROTEIN(semi-quant) 3+ (NEGATIVE)
[2024-02-13 11:45] LABS: BASO # 0.1 K/mm3 (0.0-0.2); BASO % 0.7 % (0.0-2.0); EOS # 0.1 K/mm3 (0.0-0.7); EOS % 0.8 % (0.0-4.0); GRAN # 8.4 K/mm3 (1.4-6.5); GRAN % 65.9 % (42.2-75.2); HEMATOCRIT 46.7 % (37.0-47.0); HEMOGLOBIN 16.3 g/dl (12.5-16.0); LYMPH # 3.3 K/mm3 (1.2-3.4); LYMPH % 26.3 % (20.0-51.0); MEAN CELL VOLUME 102 fl (80.0-100.0); MEAN CORPUSCULAR HEMOGLOBIN 36 pg (27-31); MEAN CORPUSCULAR HGB CONC 35 g/dl (33.0-37.0); MEAN PLATELET VOLUME 11.8 fl (7.4-10.4); MONO # 0.8 K/mm3 (0.1-0.6); PLATELET COUNT 138 K/mm3 (130-400); RED BLOOD COUNT 4.57 M/mm3 (4.10-5.30); REDCELL DISTRIBUTION WIDTH-CV 14.5 % (11.5-14.5)
[2024-02-13 11:57] LABS: ALBUMIN 3.4 g/dL (3.5-5.0); BILIRUBIN,TOTAL 3.4 mg/dL (0.2-1.2); CALCIUM 9.3 mg/dL (8.4-10.2); CREATININE, serum 0.81 mg/dL (0.57-1.11); POTASSIUM 3.5 mEq/L (3.5-4.5); TOTAL PROTEIN 9.2 g/dl (6.2-8.1)
[2024-02-13] MEDS ORDERED: cefTRIAXone 1 G in Water For Injection,Sterile 10 ML IV ONE (12:00)
[2024-02-13 12:02] LABS: URINE RBC 0-2 /hpf (0-2); URINE WBC 0-2 /hpf (0-2)
[2024-02-13 12:03] LABS: MUCOUS PRESENT (NOT PRESENT); URINE BACTERIA RARE /hpf (NONE SEEN)
[2024-02-13] MEDS ORDERED: Morphine 4 MG/ML VIAL IV ONE (12:15)
[2024-02-13] MEDS ORDERED: Iohexol 300 - 100 ML VIAL IV ONE (13:33)
[2024-02-13] MEDS ORDERED: NS 100 ML IV SCH (13:34)
[2024-02-13] MEDS ORDERED: NORCO 325 MG-51 TAB PO (14:07)
[2024-02-13] MEDS ORDERED: PRIL40 PO (14:07)
[2024-02-13] MEDS ORDERED: CEPHALEXIN500 M1 PO (14:07)
[2024-02-13 14:17] VITALS: BP 149/94; PULSE 55
== END 2024-02-13 14:27 | disposition home or self-care (01) ==
LOC: COL.ER 08:42
PROVIDERS: Physician Assistant
DX: K85.90 Acute pancreatitis without necrosis or infection, unspecified (principal); K29.80 Duodenitis without bleeding; N39.0 Urinary tract infection, site not specified
CPT/HCPCS: C9113; J0696; J2270; J2405; J7030; Q9967